=== PATIENT | female | born 1980 ===

== ENCOUNTER → 2018-04-24 11:48 | Outpatient (REF) | payer BC, SELFPAY ==
--- NOTE | 2018-04-24 11:00 | PAPFT_PTH ---
PATIENT: Jessica Payne LOC: [facility] U#:[id number] AGE/SX: 45/F ROOM: RE04/24/[address]: Sterling Don RN : 1980 BED: DIS: SPEC #: [id number] RECD: 04/24/18 12:54 STATUS: STEPHAN LAL #: [id number] JUNG: 04/24/18 11:[address]: Sterling Don DEPT: [facility] Cytology RECD BY: Zuleyka Meyer ENTERED: 04/24/18 12:54 SP TYPE: PAPFT OTHR DR: Jesse Lamb Tissues: 1 - CX/ENDOCX FOR PAP SMEARS Procedures: PAP THIN PREP/UVM Screening HPV DNA PROBE Comments: [id number]
== END ==
LOC: LBN 11:48
PROVIDERS: PCP Family Medicine; Visit Provider Advanced Practice Midwife
DX: Z12.4 Encounter for screening for malignant neoplasm of cervix (principal); Z11.51 Encounter for screening for human papillomavirus (HPV)
CPT/HCPCS: 88142; 87624

== ENCOUNTER 2019-10-16 01:26 | Outpatient (CLI) | payer BC, SELFPAY ==
--- NOTE | 2019-10-16 15:37 | DI.MAMMO_ITS ---
EXAM: MAMMO SCREENING CLINICAL HISTORY: SCREENING Z12.31, BASELINE TECHNIQUE: Mammograms were interpreted according to the usual protocol including computer analysis w Ullink CAD system, tomosynthesis and C-view imaging. COMPARISON: Today's examination is a baseline examination. FINDINGS: The breasts are heterogeneously dense. No dominant mass or clumped microcalcification is identified in either breast. Today's examination is a baseline examination. IMPRESSION: No specific evidence of malignancy at this time. Routine screening examinations are suggested at year ly intervals due to the family history of breast carcinoma. Category 1, breast density category C. BI-RADS Cat 1 - Negative Breast Density - Category C - Heterogeneously dense
== END 2019-10-16 01:46 ==
PROVIDERS: PCP Family Medicine; Visit Provider Registered Nurse
DX: Z12.31 Encounter for screening mammogram for malignant neoplasm of breast (principal); Z80.3 Family history of malignant neoplasm of breast
CPT/HCPCS: 77063; 77067

== ENCOUNTER 2020-07-21 14:47 | Outpatient (CLI) | payer BC, SELFPAY ==
[2020-07-21 15:12] LABS: Kit/Specimen SENT
[2020-07-21 15:31] LABS: Abs Immature Grans 0.06 10^3/uL (0.0-0.06); Absolute Basophil Count 0.01 10^3/uL (0.0-0.2); Absolute Monocyte Count 0.57 10^3/uL (0.1-0.8); Absolute Neutrophil Count 7.88 10^3/uL (1.2-6.7); Basophils % 0.1; Eosinophils % 0.9; HCT 35.2 % (36.0-46.0); Immature Grans % 0.6; Lymphocytes % 20.3; MCH 30.6 pg (27.0-33.0); MCHC 34.1 % (32.0-36.0); MCV 89.8 fL (80-95); MPV 10.5 fL (8.0-11.0); Monocytes % 5.3; Neutrophils % 72.8; Nucleated RBC 0 %; Platelet Count 234 10^3/uL (130-400); RBC 3.92 10^6/uL (3.93-5.22); RDW 12.2 % (11.7-14.6); RDW-SD 39.8 fL; WBC 10.82 10^3/uL (4.4-10.8)
[2020-07-21 16:46] LABS: *AMPHETAMINES SCREEN URINE Negative (Negative); *BARBITURATES SCREEN URINE Negative (Negative); *BENZODIAZEPINES SCREEN URINE Negative (Negative); Cannabinoids THC Negative (Negative); Cocaine Screen,Urine Negative (Negative); METHADONE URINE SCREEN Negative (Negative); OPIATES URINE SCREEN Negative (Negative); Tricyclic Antidepressants Negative (Negative)
[2020-07-21 17:29] LABS: TSH (W/Ref FT4) 0.78 uIU/mL (0.36-3.74)
[2020-07-23 15:43] LABS: Syphilis Total Ab w/Reflex Nonreactive (Nonreactive)
[2020-07-23 17:07] LABS: AFP 24.6 ng/mL; Cigarette smoking status non-Smoker; GA used in risk estimate Scan estimate; IVF Pregnancy No; Initial or repeat testing Initial testing; Insulin dependent diabetes No; Maternal Weight 129 lbs; Number of Fetuses 1; Physician Phone Number 802-748-7300; Prev Pregnancy w/NTD No; RECOMMENDED FOLLOW UP None.; Results Summary Normal risk
[2020-07-26 20:54] LABS: Hepatitis B Surface Ag Negative (Negative); Hepatitis C Ab w Rflx HCV PCR Negative (Negative)
[2020-07-26 22:18] LABS: Specimen WB Whole Blood
[2020-07-27 12:01] LABS: Buprenorphine Negative; Norbuprenorphine Negative
[2020-07-29 18:01] LABS: Specimen WB Whole Blood
[2020-07-30 16:21] LABS: HIV-1/2 Ag & Ab Screen Negative (Negative)
[2020-10-08 15:19] LABS: Varicella IgG Antibody Positive
[2020-10-08 15:20] LABS: Measles IgG Antibody Negative
[2020-10-08 15:22] LABS: Chlamydia Result Negative (Negative); GC Result Negative (Negative)
== END 2020-07-21 15:07 ==
PROVIDERS: PCP Family Medicine; Visit Provider Advanced Practice Midwife
DX: Z34.91 Encounter for supervision of normal pregnancy, unspecified, first trimester (principal); Z11.4 Encounter for screening for human immunodeficiency virus [HIV]; Z11.59 Encounter for screening for other viral diseases; Z36.89 Encounter for other specified antenatal screening
CPT/HCPCS: 36415; 80307; 81329; 86787; 86803; 86850; 86900; 86901; 87340; 87389; 87491; 87591; 81220; 82105; 84443; 85025; 86762; 86765; 86780; 87086; 87480; 87510; 87660

== ENCOUNTER 2020-07-21 16:40 | Outpatient (REF) | payer BC, SELFPAY ==
--- NOTE | 2020-07-21 14:00 | PAPFT_PTH ---
PATIENT: Jessica Payne LOC: [facility] U#:[id number] AGE/SX: 40/F ROOM: RE07/21/[address]: Saira Ann : 1980 BED: DIS: 07/21/2020 SPEC #: [id number] RECD: 07/21/20 17:44 STATUS: STEPHAN REAlayna #: [id number] JUNG: 07/21/20 14:[address]: Saira Ann DEPT: [facility] Cytology RECD BY: Zuleyka Meyer ENTERED: 07/21/20 17:44 SP TYPE: PAPFT OTHR DR: Jesse Lamb Tissues: 1 - CX/ENDOCX FOR PAP SMEARS Procedures: PAP THIN PREP/UVM Screening Comments: [id number] ([id number] [facility])
== END 2020-07-21 17:00 ==
LOC: LBN 16:40
PROVIDERS: PCP Family Medicine; Visit Provider Advanced Practice Midwife
DX: Z12.4 Encounter for screening for malignant neoplasm of cervix (principal); Z87.42 Personal history of other diseases of the female genital tract
CPT/HCPCS: 88142

== ENCOUNTER 2020-10-20 03:51 | Outpatient (CLI) | payer BC, SELFPAY ==
[2020-10-20 15:20] LABS: HCT 31.8 % (36.0-46.0); HGB 10.6 g/dL (11.2-15.7); MCHC 33.3 % (32.0-36.0); MPV 11.2 fL (8.0-11.0); Platelet Count 219 10^3/uL (130-400); RBC 3.42 10^6/uL (3.93-5.22); RDW 12.2 % (11.7-14.6); RDW-SD 41.2 fL
[2020-10-20 15:30] LABS: Glucose,1 Hr (Glucola) 115 mg/dL (80-140)
[2020-10-21 12:09] LABS: Rubella IgG Ab (UVM) Positive (See Note)
== END 2020-10-20 03:52 | disposition home or self-care (01) ==
LOC: LBO 03:51
PROVIDERS: Advanced Practice Midwife; PCP Family Medicine; Visit Provider Advanced Practice Midwife
DX: Z34.93 Encounter for supervision of normal pregnancy, unspecified, third trimester (principal)
CPT/HCPCS: 36415; 82950; 85027; 86762

== ENCOUNTER 2020-12-14 17:24 | Outpatient (REF) | payer BC, SELFPAY | END 2020-12-14 17:25 | disposition home or self-care (01) | LOC: LBN 17:24 | PROVIDERS: PCP Family Medicine; Visit Provider Advanced Practice Midwife | DX: Z34.93 Encounter for supervision of normal pregnancy, unspecified, third trimester (principal); Z3A.36 36 weeks gestation of pregnancy; Z36.85 Encounter for antenatal screening for Streptococcus B | CPT/HCPCS: 87081 ==

== ENCOUNTER 2020-12-20 10:46 | Outpatient (CLI) | payer BC, SELFPAY ==
[2020-12-20 14:10] VITALS: BP 121/83; PULSE 97; TEMP 37.1
[2020-12-20 14:36] VITALS: BP 121/83; PULSE 97
--- NOTE | 2020-12-20 15:56 | W.OBNST ---
Date of service: 12/20/20 Time of Service: 15:56 NST Evaluation Reason for NST Reasons for Nonstress Test: ADVANCED MATERNAL AGE Gestational Age Gestational Age in Weeks and Days: 36 Weeks and 6Days Test and Monitor Explained Test/Monitor Explained: Test Explained, Monitor Explained and Patient Verbalized Understanding Vital Signs Blood Pressure: 121/83 Pulse: 97 Temperature: 98.8 F NST Information Time on Monitor: 14:12 Date off Monitor: 12/20/20 Time off Monitor: 14:45 NST Interventions: PO Hydration NST Evaluation Patient States Movement: Present FHR Baseline: 140 Variability: Moderate 6-25 bpm Accelerations: 15x15 Decelerations: None NST Results: Reactive Note NST Note NST Reviewed and Verified by: Cristal Macario
[2020-12-20 15:58] VITALS: BP 121/83; PULSE 97; TEMP 37.1
== END 2020-12-20 14:45 | disposition home or self-care (01) ==
LOC: BCD 10:47 → OBS 14:08
PROVIDERS: PCP Family Medicine; Visit Provider Advanced Practice Midwife
DX: O09.523 Supervision of elderly multigravida, third trimester (principal); Z3A.36 36 weeks gestation of pregnancy
CPT/HCPCS: 59025

== ENCOUNTER 2020-12-23 12:58 | Outpatient (CLI) | payer BC, SELFPAY ==
[2020-12-23 14:13] VITALS: BP 110/77; PULSE 87; TEMP 36.7
--- NOTE | 2020-12-23 14:46 | W.OBNST ---
Date of service: 12/23/20 Time of Service: 14:47 NST Evaluation Reason for NST Reasons for Nonstress Test: ADVANCED MATERNAL AGE Gestational Age Gestational Age in Weeks and Days: 37 Weeks and 2Days Test and Monitor Explained Test/Monitor Explained: Test Explained, Monitor Explained and Patient Verbalized Understanding Vital Signs Blood Pressure: 110/77 Pulse: 87 Temperature: 98.1 F Urine Results Urine Protein: Positive Urine Ketones: Positive Urine Glucose: Negative Urine Blood: Positive NST Information Date on Monitor: 12/23/20 Time on Monitor: 14:05 Date off Monitor: 12/23/20 Time off Monitor: 14:33 Total Time on Monitor: 28 NST Interventions: PO Hydration NST Evaluation Patient States Movement: Present FHR Baseline: 140 Variability: Moderate 6-25 bpm Accelerations: 15x15 Decelerations: None NST Results: Reactive Note NST Note Note: Jessica Payne presents for scheduled NST due to AMA at 37w2d. No complaints and feels well. Reports active baby. Will return on Mondays and for NST's and weekly office visit. LESLIE NST Reviewed and Verified by: Saira Fabian
[2020-12-23 14:47] VITALS: BP 110/77; PULSE 87; TEMP 36.7
== END 2020-12-23 14:40 | disposition home or self-care (01) ==
LOC: BCD 13:02 → OBS 14:01
PROVIDERS: PCP Family Medicine; Visit Provider Advanced Practice Midwife
DX: O09.523 Supervision of elderly multigravida, third trimester (principal); Z3A.37 37 weeks gestation of pregnancy
CPT/HCPCS: 59025

== ENCOUNTER 2020-12-27 07:06 | Outpatient (CLI) | payer BC, SELFPAY ==
[2020-12-27 14:40] VITALS: BP 127/80; PULSE 90; TEMP 36.4
--- NOTE | 2020-12-27 15:23 | W.OBNST ---
Date of service: 12/27/20 Time of Service: 15:05 NST Evaluation Reason for NST Reasons for Nonstress Test: ADVANCED MATERNAL AGE Gestational Age Gestational Age in Weeks and Days: 37 Weeks and 6Days Test and Monitor Explained Test/Monitor Explained: Test Explained, Monitor Explained and Patient Verbalized Understanding Vital Signs Blood Pressure: 127/80 Pulse: 90 Temperature: 97.5 F Urine Results Urine Protein: Negative Urine Ketones: Negative Urine Glucose: Negative Urine Blood: Negative NST Information NST Interventions: PO Hydration NST Evaluation Patient States Movement: Present Variability: Moderate 6-25 bpm Accelerations: 15x15 Decelerations: None NST Results: Reactive Note NST Note Note: Here for NST, no complaints. Reports active baby, no LOF, vaginal bleeding or contractions. Has disability paper work that I will give to [facility] to process for her. Has NST 2 X weekly and US for SKINNY/growth and presentation next week. NST today is reactive and reassuring. NST Reviewed and Verified by: Saira Fabian
[2020-12-27 15:25] VITALS: BP 127/80; PULSE 90; TEMP 36.4
== END 2020-12-27 15:15 | disposition home or self-care (01) ==
LOC: BCD 07:07 → OBS 14:38
PROVIDERS: PCP Family Medicine; Visit Provider Advanced Practice Midwife
DX: O09.523 Supervision of elderly multigravida, third trimester (principal); Z3A.37 37 weeks gestation of pregnancy
CPT/HCPCS: 59025

== ENCOUNTER 2020-12-30 07:18 | Outpatient (CLI) | payer BC, SELFPAY ==
[2020-12-30 14:09] VITALS: BP 116/80; PULSE 90; TEMP 36.9
[2020-12-30 14:28] VITALS: BP 116/80; PULSE 90
--- NOTE | 2020-12-30 15:04 | W.OBNST ---
Date of service: 12/30/20 Time of Service: 15:04 NST Evaluation Reason for NST Reasons for Nonstress Test: ADVANCED MATERNAL AGE Gestational Age Gestational Age in Weeks and Days: 38 Weeks and 2Days Test and Monitor Explained Test/Monitor Explained: Test Explained, Monitor Explained and Patient Verbalized Understanding Vital Signs Blood Pressure: 116/80 Pulse: 90 Temperature: 98.4 F NST Information Date on Monitor: 12/30/20 Time on Monitor: 14:10 Date off Monitor: 12/30/20 Contraction Frequency: 6-7 NST Evaluation Patient States Movement: Present FHR Baseline: 140 Variability: Moderate 6-25 bpm Accelerations: 15x15 Decelerations: None NST Results: Reactive Note NST Note Note: see visit note. RTO 01/03. Induction planned for 01/09. NST Reviewed and Verified by: Saira Ann
[2020-12-30 15:05] VITALS: BP 116/80; PULSE 90; TEMP 36.9
[2020-12-31 15:19] VITALS: BP 138/93; PULSE 96
== END 2020-12-30 14:34 | disposition home or self-care (01) ==
LOC: BCD 07:19 → OBS 13:54
PROVIDERS: PCP Family Medicine; Visit Provider Advanced Practice Midwife
DX: O09.523 Supervision of elderly multigravida, third trimester (principal); Z3A.38 38 weeks gestation of pregnancy
CPT/HCPCS: 59025

== ENCOUNTER 2020-12-31 03:11 | Outpatient (CLI) | payer BC, SELFPAY ==
--- NOTE | 2020-12-31 07:15 | DI.US_ITS ---
EXAM: US OB SKINNY WEIGHT CLINICAL HISTORY: SKINNY and weight,ADVANCED MATERNAL AGE,. TECHNIQUE: Transabdominal obstetrical ultrasound performed. COMPARISON: No previous for comparison. FINDINGS: Transabdominal obstetrical ultrasound performed. FINDINGS: Number of fetuses: One. position: Cephalic. Placental location: Fundal and to the right. Grade 2-3. no evidence of previa. BIOMETRIC DATA: BPD: 91 mm = 37 weeks HC: 334 mm = 38 weeks 1 day AC: 349 mm = 38 weeks 5 days FL: 70 mm = 35 weeks 6 days EFW: 3315 grms 49% Composite Age: 37 weeks 3 days EDC: 01/18/2021 Heart Rate: 147BPM Amniotic fluid index: 27.5 cm. Findings suggesting polyhydramnios. IMPRESSION: 1. Single live intrauterine gestation as above. 2. Estimated weight is 3315gms. 3. Amniotic fluid index is 27.5 cm. Findings of polyhydramnios. DATA REPOSITORY:
== END 2020-12-31 03:31 ==
PROVIDERS: PCP Family Medicine; Visit Provider Advanced Practice Midwife
DX: O09.523 Supervision of elderly multigravida, third trimester (principal); O40.3XX0 Polyhydramnios, third trimester, not applicable or unspecified; Z3A.38 38 weeks gestation of pregnancy
CPT/HCPCS: 76816

== ENCOUNTER 2021-01-01 15:38 | Inpatient (IN) | payer BC, SELFPAY ==
[2021-01-01] VITALS (16 sets, daily range): BP systolic 105–125; BP diastolic 66–82; PULSE 60–196; RESP 14–20; TEMP 36.9; O2SAT 85–98
[2021-01-01 16:45] LABS: ROM Plus Positive
[2021-01-01 17:27] LABS: Source Nasal/Nares
[2021-01-01 17:31] LABS: HCT 35.5 % (36.0-46.0); MCH 31.5 pg (27.0-33.0); MCHC 33.8 % (32.0-36.0); MCV 93.2 fL (80-95); MPV 12.7 fL (8.0-11.0); Platelet Count 148 10^3/uL (130-400); RBC 3.81 10^6/uL (3.93-5.22); RDW-SD 47.8 fL; WBC 10.17 10^3/uL (4.4-10.8)
--- NOTE | 2021-01-01 18:00 | W.PM.OBHPL1 ---
Date of service: 01/01/21 Time of Service: 18:00 Assessment and Plan Assessment and plan (1) Spontaneous onset of labor: Status: Acute Assessment and plan: Admit to Center. Comfort measures. Covid- 19 test. Anticipate . artificial rupture of forebag if patient desires. (2) Polyhydramnios: Status: Acute (3) Advanced maternal age (AMA) in : Status: Acute OB-HPI Labor/Delivery History of Present Illness Reason for Visit: RULE OUT LABOR, SROM? Chief Complaint: Suspected Rupture of Membranes (leaking clear fluid) , Associated Signs and Symptoms of Suspected ROM: mild contractions ; Suspected Labor. JONATHAN Calculator Estimated Delivery Date Method Current WG Current Estimate 01/11/21 Ultrasound #2 38w 4d Other Estimates 01/31/21 LMP (Uncertain) 35w 5d 12/25/20 Ultrasound #1 41w 0d Comments: Jessica is experiencing mild contractions. and leaking a small amount of fluid. History of Present Expected Delivery Route/Plan - CNM FOB/ - Cooper (second child together) BG GBS Negative @ 36 wks Desires epidural for labor Plan for MMR vaccine (Rubeola neg) (rubella positive in Nov 07) Maternal age >40: plan NST x2/wk at 37 wks, SKINNY @ 38 wks, IOL before 40 wks IOL 01/09 Specific Issues/Plan 1. PA approved for [place] screening, not required for CF & SMA screening 1a. [place], CF, SMA, and AFP drawn 1b. SMA carrier screen negative, [place] low prob x3, female 1c. [place] [facility] [place] lying placenta, repeat US in 4 weeks due to dating not consistent with first trimester US. 2. Depression - taking sertraline 75 mg - would like to wean off. 2a. At 24 wks, happy taking 50 mg sertraline, no longer desires to wean. 3. Advanced Maternal Age - referred to [facility] for Level 2 US 4. Tandem Nursing. Stopped nursing toddler in July 2020 5. Bacterial Vaginosis - metronidazole 500 mg PO BID e-scribed. 6. 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 Low lying placenta, repeat US at 28 weeks for placental position 7a. US at [facility] [place]/08/20 showed posterior placenta 8. HPV not performed on pap - discuss with patient. Repeat pap 9. Needs rubella titer drawn (Rubeola was drawn which is neg,)- draw with 28 week labwork, discuss neg rubeola titre with Jessica 9a. Disc'ed Rubella test & Rubeola results w/pt, will waive Rubella test, plan for MMR vaccine 9b. Rubella titre was ordered and was neg. 10. Hgb at 28 wks 10.6, advised in iron rich foods & Blood Builder 1 tab BID, routine recheck @ 36 wks 11. Received Tawanda and Tawanda covid vaccine 11/28, TDAP 2 weeks after 12. US 12/31 indicates polyhydrannios with SKINNY 27.5, precautions reviewed with Jessica. repeat US in 1 week. IOL pending US results. Informed Consent Informed Consent: Risk,Benefits,Alternatives Discussed (expectant management or rupture of forebag of membranes) PFSH Medical History Depression screen neg Depression, major, in remission Former tobacco use Family History (Updated 07/21/20 @ 13:48 by Saira Ann CNM) Mother Mental disorder anxiety Father Mental disorder anxiety Neoplasm Paternal Grandfather Heart disease Maternal Grandfather Mental disorder bipolar disorder Social History (Updated 07/21/20 @ 13:49 by Saira Ann CNM) Smoking/Tobacco Use Status: Former Tobacco Use Quit Date: 07/31/17 Smoking risk assessment performed?: Yes History History 3 Para 1 Hx # Term Pregnancies 1 Multiple births 0 Hx # Pregnancies 0 Ectopic pregnancies 0 AB induced 0 Hx Number of Living Children 1 AB spontaneous 1 Past Pregnancies Del. Date GA/Weeks # Outcome Route Wgt Sex Labor Lgth Anesthesia Location Prov Complic 03/12/18 39 No Successful vaginal Male 15 regional Anea Delivery Date: 03/12/18 Saira Mcnulty [place] Allergies and Home Medications Allergies Allergy/AdvReac Type Severity Reaction Status Date / Time No Known Allergies Allergy Unverified 12/27/20 15:29 Home Medications Medication Instructions Recorded Confirmed Type PNV cmb#95-ferrous fumarate-FA 1 ea PO DAILY 06/29/17 12/27/20 History [] sertraline 25 mg tablet 50 mg PO DAILY tab 07/21/20 12/27/20 History ferrous sulfate 325 mg (65 mg 650 mg PO DAILY tab 12/20/20 12/27/20 History iron) tablet Exam Physical Exam Vital signs: Temp Pulse Resp BP Pulse Ox 98.5 F 89 14 125/72 98 01/01/21 17:24 01/01/21 17:24 01/01/21 17:24 01/01/21 17:24 01/01/21 17:24 Vital Signs Reviewed: Yes Constitutional Constitutional: no acute distress Detailed Labor and Delivery Exam Dilation: 2 Effacement (%): 80 station: -1 Cervix position: posterior Consistency: soft Bolanos Score: Cervical Points Exam 0 1 2 3 Dilation Closed 1-2cm 3-4 cm 5-6cm Effacement 0-30% 40-50% 60-70% 80% Consistency Firm Medium Soft Station -3 -2 -1,0 +1,+2 Position Posterior Mid Anterior Amniotic Membrane Status: Ruptured Rupture Method: Spontaneous Amniotic Fluid: Clear ROM Plus: Positive Fetus A Heart Rate Baseline: 140 Monitor Accelerations: 15 X 15 Monitor Decelerations: None Variability: Moderate (6-25 BPM) Presentation: Vertex Categories: Category I Respiratory Exam Respiratory Exam: Normal Cardiovascular Exam Cardiovascular Exam: Normal Abdominal Exam Abdominal Exam: Normal Rectal Exam Rectal Exam: Normal Exam Exam: Normal Extremities Exam Extremities Exam: Normal Psychiatric Exam Psychiatric Exam: Normal Results Abnormal Lab Findings: Abnormal Labs 01/01/21 17:20 RBC 3.81 L Hct 35.5 L MPV 12.7 H Risk Assessment Risk for Shoulder Dystocia Historical/Initial OB: NEGATIVE FOR: Pelvic Abnormality, Pre- BMI>30, Previous Shoulder Dystocia or Previous Macrosomia 40 Weeks: NEGATIVE FOR: EFW> 4500 gms, Maternal Weight Gain >40lb or Post Dates Increased Risk?: No Risk for Pre-Eclampsia Daily Dose ASA Indicated: No Yes, if one or more: NEGATIVE FOR: Hx Pre-E/Gest HTN, Chronic HTN, Multiple Gestation, Pre-gestational DM, Renal Disease, Systemic Lupus or APA Syndrome Yes, if 2 or more: POSITIVE FOR: Age>= 35 yrs; NEGATIVE FOR: Nulliparity, >10yr btwn pregnancies, BMI>30, ethinicty, Mother/Sister w/ Pre-E or Previous IUGR Risk for Post- Hemorrhage Initial: NEGATIVE FOR: Multiple Gestation, Previous PPH, Known Clotting Deficiency, Grand Multiparity or Anticoagulation At Risk?: No Risks Reviewed Risks Reviewed Upon Admission: Yes
[2021-01-01 18:35] LABS: COVID-19 PCR Negative (Negative)
[2021-01-01] MEDS: Normal Saline Flush 10 ML SYR IVP (18:38)
[2021-01-01] MEDS: Lactated Ringers 500 ML IV (18:39)
[2021-01-01] MEDS: FentaNYL/ROPIvacaine 2 mcg/ml and 0.1% 200 ML CADD Cassette EP (19:00)
--- NOTE | 2021-01-01 21:23 | W.OBDELIVERY ---
Date of service: 01/01/21 Time of Service: 21:23 OB Labor/ Delivery Information Baby A Delivery Delivery Method: Spontaneaous Presentation: Vertex Vertex Position: Left Occipital Anterior Cord Description-Baby A: 3 Vessels Amniotic Fluid: Clear Delivery Outcome: Liveborn Transferred: Remains with Mother Providers Nurse Product Development Consultant: Saira Ann Intake Specialist: Royer Cadet Nurse: Regina Henry Labor/Delivery Information Number of Babies in Womb: 1 Steroids Given: None Group Beta Strep: Negative Antibiotics Administered: No Rubella Status: Immune Blood Type: A+ Varicella Immunity: Immune Maternal Complications: None Shoulder Dystocia: No Note: [id number] during first stage of labor. FHTs 130s in second stage. Progressed to full dilation and began pushing. Second stage huddle was done. Spontaneous delivery of female infant delivered in SORAYA position. Baby was placed on mother's abdomen and dried and stimulated. Spontaneous cry. Cord was clamped and cut by the baby's father. The placenta delivered spontaneously and appears to by intact with a three vessel cord. The perineum was inspected and there was a small hymenal abrasion which was re-approximated with one 4-0 vicryl suture. The baby did breastfeed. After delivery, Mother and baby and father of the baby were stable and bonding well in the delivery room and there were no complications. Stages of Labor Onset of Labor Date: 01/01/21 Onset of Labor Time: 15:00 Complete Dilatation Date: 01/01/21 Complete Dilatation Time: 20:44 Labor - Stage 1 Duration: 0 minutes ROM Baby A: 01/01/21 ROM Baby A: 15:30 Infant Delivery Date-Baby A: 01/01/21 Infant Delivery Time-Baby A: 20:54 Labor Stage 2 Duration: 10 minutes Placenta Delivery Date-Baby A: 01/01/21 Placenta Delivery Time-Baby A: 21:00 Labor-Stage 3 Duration: 6 minutes Total Length of Labor-Baby A: 5 hours and 54 minutes Placenta Cultured: No Placenta Status: Delivered Baby A Gender: Female Gestational Age in Weeks/Days: 38 Weeks and 4 Days Score-1 Minute Interval(Baby A) Heart Rate-1 minute: 100 BPM or Greater Respiratory Effort- 1 minute: Spontaneous/Strong Cry Muscle Tone-1 minute: Active Movement Reflex Response-1 minute: Prompt Response Color-1 minute: Pallor or Cyanosis Total Score-1 minute: 8 Score-5 Minute Interval(Baby A) Heart Rate- 5 minute: 100 BPM or Greater Respiratory Effort-5 minute: Spontaneous/Strong Cry Muscle Tone-5 minute: Active Movement Reflex Response-5 minute: Prompt Response Color-5 minute: Bluish Hands or Feet Total Score- 5 minute: 9 Interventions Repair of Laceration Type: Other (hymenal, left labial) , Laceration Repair Note: hymenal abrasion re- approximated with one interrupted suture, left labial abrasion not repaired
[2021-01-01] MEDS: Lactated Ringers 1,000 ML 125 ML IV (22:38)
[2021-01-02 02:30] VITALS: BP 121/73; PULSE 67; RESP 18; TEMP 36.8
[2021-01-02] MEDS: Acetaminophen 325 MG TAB 650 MG PO ×3 (07:41→20:06)
[2021-01-02] MEDS: Ibuprofen 600 MG TAB PO ×3 (07:41→20:06)
[2021-01-02] MEDS: Sertraline 50 MG TAB PO (07:42)
[2021-01-02 07:43] LABS: HCT 35.5 % (36.0-46.0); HGB 12.2 g/dL (11.2-15.7); MCH 31.5 pg (27.0-33.0); MCHC 34.4 % (32.0-36.0); MCV 91.7 fL (80-95); MPV 12.4 fL (8.0-11.0); Platelet Count 137 10^3/uL (130-400); RBC 3.87 10^6/uL (3.93-5.22); RDW-SD 47.1 fL; WBC 11.51 10^3/uL (4.4-10.8)
[2021-01-02 08:00] VITALS: BP 122/73; PULSE 68; RESP 12; TEMP 36.6; O2SAT 98
[2021-01-02] MEDS: Measles, Mumps, & Rubella Vaccine 0.5 ML VIAL (12:56)
[2021-01-02 16:15] VITALS: BP 107/65; PULSE 66; RESP 14; TEMP 36.7; O2SAT 99
--- NOTE | 2021-01-02 19:55 | OBPPV_ITS ---
Date of service: 01/02/21 Time of Service: 16:00 Assessment and Plan Assessment and plan (1) Normal vaginal delivery: Status: Acute Assessment and plan: Caring for baby independently. Pain is managed well with oral analgesics. Voiding without difficulty. well. A - stable mother and baby , Post day 1 P - Discharge to home . Routine post instructions. [facility] Subjective Subjective Patient comments: No complaints baby status: Doing well [place] feeding status: Exclusively breast feeding Exam Physical Exam Vital signs: Temp Pulse Resp BP Pulse Ox 98.1 F 66 14 107/65 99 01/02/21 16:15 01/02/21 16:15 01/02/21 16:15 01/02/21 16:15 01/02/21 16:15 Constitutional Constitutional: no acute distress Respiratory Exam Respiratory Exam: Normal Cardiovascular Exam Cardiovascular Exam: Normal Abdominal Exam Abdomen: Tender Fundal Exam Fundus: Below Umbilicus Extremities Exam Extremity Exam: Normal Psychiatric Exam Psychiatric Exam: Normal Results Hemoglobin/Hematocrit: Hgb 12.2 g/dL (11.2-15.7) 01/02/21 07:20 Hct 35.5 % (36.0-46.0) L 01/02/21 07:20 Abnormal Lab Findings: Abnormal Labs 01/01/21 01/02/21 17:20 07:20 WBC 11.51 H RBC 3.81 L 3.87 L Hct 35.5 L 35.5 L MPV 12.7 H 12.4 H
[2021-01-02 20:00] VITALS: BP 126/64; PULSE 66; RESP 16; TEMP 37.4; O2SAT 99
[2021-01-02] MEDS: Docusate Sodium 100 MG CAP PO (20:06)
[2021-01-03] VITALS: TEMP 37.1
[2021-01-03 04:00] VITALS: TEMP 36.5
[2021-01-03] MEDS: Ibuprofen 600 MG TAB PO (04:01)
[2021-01-03] MEDS: Acetaminophen 325 MG TAB 650 MG PO ×2 (04:01→08:21)
[2021-01-03] MEDS: Sertraline 50 MG TAB PO (08:17)
[2021-01-03 08:30] VITALS: BP 108/73; PULSE 66; RESP 14; TEMP 37
--- NOTE | 2021-01-03 09:26 | W.PM.OBDISCH ---
Date of service: 01/03/21 Time of Service: 09:26 DS: Diagnosis Discharge Diagnosis (1) Normal vaginal delivery: Status: Acute Asessment and Plan: Caring for baby independently. Pain is managed well with oral analgesics. Voiding without difficulty. well. A - stable mother and baby , Post day 2 P - Discharge to home. Routine post instructions. [facility] Discharge Plan Discharge Details Reason For Visit: RULE OUT LABOR, SROM? Admit Date/Time: 01/01/21 15:38 Admit Provider: Saira Ann Attending Provider: Saira Ann Primary Care Provider: Jesse Lamb Home Meds and New Rx's Prescriptions: Continued PNV cmb#95-ferrous fumarate-FA [] 1 EACH tablet 1 ea PO DAILY RF: 0 Discontinued ferrous sulfate 325 mg (65 mg iron) tablet 650 mg PO DAILY RF: 0 No Action sertraline 25 mg tablet 50 mg PO DAILY RF: 0 Discharge Instructions Activity:: Activity as Tolerated Activity:: Activity as Tolerated Equipment/Supplies:: No Equipment Needed Diet:: As Tolerated OB:DS Summary Summary Vaginal Delivery Method: Spontaneaous Episiotomy Description: None Laceration Description: Other (hymenal, left labial) Laceration Extension: N/A Contraception Discussed Contraception Discussed: Yes (paragard) Contraceptive Plan: IUD, [place] Gender-Baby A: Female weight: 7 lb 2.288 oz Status at Discharge Functional status at discharge: independent ambulation Overall status at discharge: patient is back to baseline Mental Status: mental status grossly normal Speech and Movement: speech and movement normal Mood: congruent mood Affect: normal affect Exam Physical Exam Vital signs: Temp Pulse Resp BP Pulse Ox 97.7 F 66 16 126/64 99 01/03/21 04:00 01/02/21 20:00 01/02/21 20:00 01/02/21 20:00 01/02/21 20:00 Constitutional Constitutional: no acute distress Respiratory Exam Respiratory Exam: Normal Cardiovascular Exam Cardiovascular Exam: Normal Abdominal Exam Abdomen: Tender Fundal Exam Fundus: Below Umbilicus Extremities Exam Extremity Exam: Normal Psychiatric Exam Psychiatric Exam: Normal [facility] Medical History Depression screen neg Depression, major, in remission Former tobacco use Family History (Updated 07/21/20 @ 13:48 by Saira Ann CNM) Mother Mental disorder anxiety Father Mental disorder anxiety Neoplasm Paternal Grandfather Heart disease Maternal Grandfather Mental disorder bipolar disorder Social History (Updated 07/21/20 @ 13:49 by Saira Ann CNM) Smoking/Tobacco Use Status: Former Tobacco Use Quit Date: 07/31/17 Smoking risk assessment performed?: Yes History History 3 Para 1 Hx # Term Pregnancies 1 Multiple births 0 Hx # Pregnancies 0 Ectopic pregnancies 0 AB induced 0 Hx Number of Living Children 1 AB spontaneous 1 Past Pregnancies Del. Date GA/Weeks # Outcome Route Wgt Sex Labor Lgth Anesthesia Location Prov Complic 03/12/18 39 No Successful vaginal Male 15 regional Anea Delivery Date: 03/12/18 Saira Mcnulty DS: Data Vitals/I&O Vitals and I&O: Vital Signs Temperature 97.7 F 01/03/21 04:00 Pulse 66 01/02/21 20:00 Pulse Rhythm Regular 01/02/21 20:00 Respiratory Rate 16 01/02/21 20:00 Respiratory Depth Normal 01/01/21 17:24 Blood Pressure 126/64 01/02/21 20:00 Blood Pressure Mean 84 01/02/21 20:00 Pulse Oximetry 99 01/02/21 20:00 Oxygen Delivery Method Room Air 01/01/21 17:24 Oxygen Flow Rate 0 01/01/21 17:24 Pain Level 1 01/03/21 08:21 Comment 01/02/21 20:00 Intake & Output 01/02/21 01/02/21 01/03/21 11:59 23:59 11:59 Intake Total 1000 / 1000 Output Total 1100 / 1100 Balance -100 / -100 Intake: IV 1000 / 1000 Output: Urine 1100 / 1100
== END 2021-01-03 10:25 | disposition home or self-care (01) | DRG 807 ==
PROVIDERS: Admitting Provider Advanced Practice Midwife; PCP Family Medicine; Visit Provider Advanced Practice Midwife
DX: O40.3XX0 Polyhydramnios, third trimester, not applicable or unspecified (principal); Z37.0 Single live birth; O70.0 First degree perineal laceration during delivery; O99.344 Other mental disorders complicating childbirth; F32.9 Major depressive disorder, single episode, unspecified; Z3A.38 38 weeks gestation of pregnancy; Z20.822 Contact with and (suspected) exposure to COVID-19
CPT/HCPCS: 36415; 84112; 85027; 86850; 86900; 86901; 87635

== ENCOUNTER 2022-07-22 13:12 | Outpatient (REF) | payer BC, SELFPAY ==
[2022-07-22 14:54] LABS: COVID-19 PCR Negative (Negative); Influenza A PCR Negative (Negative); Influenza B PCR Negative (Negative); RSV PCR Negative (Negative)
[2022-07-22 15:18] LABS: Source Nasopharynx
== END 2022-07-22 13:13 | disposition home or self-care (01) ==
LOC: LBN 13:12
PROVIDERS: PCP Registered Nurse; Visit Provider Pediatrics
DX: J06.9 Acute upper respiratory infection, unspecified (principal)
CPT/HCPCS: 87637

== ENCOUNTER 2023-03-07 09:58 | Outpatient (CLI) | payer BC, SELFPAY ==
[2023-03-07 10:47] LABS: ALT 17 U/L (14-59); AST 11 U/L (15-37); Albumin 3.9 g/dL (3.4-5.0); Alkaline Phosphatase 57 U/L (46-116); Anion Gap 6.7 mmol/L (3-11); BUN 14 mg/dL (7-18); Bilirubin, Total 1.1 mg/dL (0.2-1.0); CO2 28.3 mmol/L (21.0-32.0); Calcium 9.1 mg/dL (8.5-10.1); Calculated LDL 114 mg/dL (<100); Chloride 105 mmol/L (98-107); Cholesterol 201 mg/dL (<200); Glucose 115 mg/dL (74-106); HDL Cholesterol 78 mg/dL (40-60); Potassium 4.1 mmol/L (3.5-5.1); Sodium 140 mmol/L (136-145); Total Protein 7.8 g/dL (6.4-8.2); Triglyceride 45 mg/dL (<150)
[2023-03-07 10:51] LABS: CREATININE 0.7 mg/dL (0.55-1.02)
== END 2023-03-07 09:59 | disposition home or self-care (01) ==
LOC: LBO 09:59
PROVIDERS: PCP Registered Nurse; Visit Provider Nurse Practitioner
DX: Z13.1 Encounter for screening for diabetes mellitus (principal); Z13.228 Encounter for screening for other metabolic disorders; Z13.220 Encounter for screening for lipoid disorders
CPT/HCPCS: 36415; 80053; 80061

== ENCOUNTER 2024-06-03 18:18 | Outpatient (CLI) | payer BC, SELFPAY ==
--- NOTE | 2024-06-03 | DI.RAD_ITS ---
Exam(s) XR CHEST 2V PA LATERAL EXAM: XR CHEST 2V PA LATERAL CLINICAL HISTORY: ICD 10 R05.9 COUGH, UNSPECIFIED TECHNIQUE: 2D digital imaging was performed. Two views. COMPARISON: No exams were available for comparison FINDINGS: HEART: Normal size. Aorta: Not dilated. PULMONARY VASCULATURE: Normal. MEDIASTINUM: Unremarkable. LUNGS: Clear. PLEURAL SPACE: No pleural effusion or pneumothorax. BONE:Unremarkable for age. SOFT TISSUES: Unremarkable. IMPRESSION: No acute abnormality. DATA REPOSITORY: RADIATION DOSE DELIVERED:
--- NOTE | 2024-06-03 19:00 | DI.VRAD_ITS ---
PROCEDURE INFORMATION: Exam: XR Chest Exam date and time: 06/03/2024 6:27 PM Age: 44 years old Clinical indication: Cough TECHNIQUE: Imaging protocol: Radiologic exam of the chest. Views: 2 views. COMPARISON: No relevant prior studies available. FINDINGS: Lungs: No alveolar infiltrate. Pleural spaces: No pleural fluid collection. No pneumothorax. Heart/Mediastinum: Normal heart size. Bones/joints: Unremarkable for patient age. IMPRESSION: No active pulmonary disease. Dictated and Authenticated by: Tyshawn Carrera MD. Ordering:BRITT MONTEZ MD
== END 2024-06-03 18:38 ==
PROVIDERS: PCP Registered Nurse; Visit Provider Nurse Practitioner Family
DX: R05.9 Cough, unspecified (principal)
CPT/HCPCS: 71046

== ENCOUNTER 2024-09-23 08:22 | Day surgery (SDC) | payer OTHER, SELFPAY ==
--- NOTE | 2024-09-22 12:54 | W.COLOREPORT ---
Date of service: 09/23/24 Time of Service: 09:55 Colonoscopy Report Date of procedure: 09/23/24 Pre-op diagnosis general: crc screen/family history of colorectal cancer in first-degree relative les Post-op diagnosis procedure note: other (Adenomatous polyps) Surgeon: Leticia De Leon Anesthesia Type: General LMA/ETT Estimated blood loss (mL): 1 Pathology: other Complications: None Disposition: same day Prep: Miralax/Dulcolax Procedure Description: After informed consent was obtained, explaining risks of the procedure, including but not limits to: bleeding, infections, complications of anesthesia, perforations (which may require antibiotics and /or surgery and stay in the hospital), and abdominal pain/cramping. The patient was taken to the procedure room and placed in a left decubitous position. Monitors were applied and a time out was done. The patients name, date of , procedure, allergies to medications and metal in their body was reviewed. The patient was then sedated. Once sedated and comfortable a rectal exam was done. External exam was normal. Internal exam revealed a normal sphincter tone and no palpable masses. The previously lubricated Olympus scope was then introduced (see RN notes for scope number) and retrofelexed. No internal hemorrhoids were identified. The scope was then advanced to the cecum without difficulty. The TI and appendiceal orifice were identified. The scope was then slowly retracted over 10 minutes back into the rectum. Polyps: A pedunculated 2 cm polyp was found at 70 cm. This was removed with a cold snare. All of the specimen was retrieved. This will be sent to pathology. Clip is placed over the defect. There is no bleeding noted from the polypectomy site. Diverticula: None the mucosa is pink and healthy w/ a normal vascular pattern. The scope was removed, and the patient was woken up and taken back to Same day surgery in stable condition. The patient tolerated the procedure well and there were no immediate complications. Follow up: The patient should follow up in 3 years, unless they develop changes in bowel habits or other new gastrointestinal complaints. [place] Bowel Prep [place] Bowel Prep Right Colon: 3 Left Colon: 3 Transverse Colon: 3 Total Score: 9
--- NOTE | 2024-09-22 19:25 | PDOC.DSDIS_ITS ---
Date of service: 09/23/24 Discharge Plan Disposition Patient Disposition: Home Condition: Good Discharge Details Reason For Visit: colon cancer screening Attending Provider: Leticia De Leon Primary Care Provider: Alexsandra De La Cruz Home Meds and New Rx's Prescriptions: Continued sertraline 25 mg tablet 75 mg PO DAILY Mirena 20 mcg/24 hours (6 yrs) 52 mg intrauterine device 1 device intrauterine ONCE Rx Instructions: as a single dose atorvastatin 10 mg tablet 10 mg PO DAILY polyethylene glycol 3350 17 gram/dose powder 17 g PO ONCE Qty: 238 0RF Rx Instructions: Take per colonoscopy instructions provided by ordering providers office loratadine [Allerclear] 10 mg tablet 10 mg PO DAILY PRN Discontinued bisacodyl [Dulcolax (bisacodyl)] 5 mg tablet,delayed release (DR/EC) 5 mg PO ONCE Qty: 4 0RF Rx Instructions: Take per colonoscopy instructions provided by ordering providers office Discharge Instructions Additional Instructions: DSU Colonoscopy Post- Op Instructions Instructions for Everyone who is given Anesthesia: For your safety, please do the following for the next twenty-four (24) hours: *Do Not operate a motor vehicle (car, truck, motorcycle, etc.) *Do Not drink alcoholic beverages or use any recreational drugs for the first 24 hours or while taking pain medications. The medications in your body may have a reaction that can be dangerous. *Do Not make any important decisions or sign any important papers. Findings: Adenomatous polyps (large pre-cancerous polyp) Follow up: Repeat Colonoscopy in 3 yrs time 1. No lifting over 20 pounds or strenuous activity for the first 24 hours after your procedure. After 24 hours there are no restrictions on your activity but you may feel fatigued for a few days. 2. After you arrive home you may have a light meal and return to your normal diet as you can tolerate it without feeling sick to your stomach. 3. You may have a bloated, gaseous feeling in your belly (abdomen) after a colonoscopy. Passing gas and belching will help. Walking or lying down on your left side with your knees flexed may relieve the discomfort. Call the office at [phone] (Office) or [phone] (Hospital) right away if you notice any of the following: a.Vomiting of blood or ?coffee ground stools?. b.Rectal bleeding 1Tbsp, blood clots or continuous bleeding. c.Severe belly (abdominal) pain. d.A hard distended belly (abdomen) and an inability to pass gas. 4. Please don?t expect to have a normal BM (bowel movement) for 2-3 days after your procedure. 5. If there are questions regarding the findings of your procedure, please contact your doctor 6. If you are unable to contact your doctor with a problem, contact the hospital at [phone]. 7. Continue all your regular medications unless directed otherwise. I understand the above instructions and have no questions. Signature of Patient or Adult Escort Name of Responsible Adult Escort Signature of Nurse Date/Time Activity:: see above Diet:: see above Discharge Orders Discharge Orders: Discharge Order (Routine); Ordered 09/23/24 Ordered By: Leticia De Leon DS: Diagnosis Discharge Diagnosis (1) Alcohol use disorder: Status: Acute (2) Screening for malignant neoplasm of colon: Status: Acute Asessment and Plan: The patient is seen and examined after their colonoscopy.? The patient has been able to pass gas.? They are not having abdominal pain.? They have been able to tolerate liquids and a snack.? They do not have any nausea or vomiting.? They are not having any chest pain or shortness of breath.??? They are not having any rectal bleeding. Their vital signs have been stable-see nursing notes. We discussed findings during their colonoscopy, and any biopsies that were done/polyps that were removed. The patient will be sent a letter with any biopsy results, and when to repeat the colonoscopy.-see discharge instructions. Patient was given explicit instructions to follow-up regarding colonoscopy-refer to discharge instructions.? We reviewed resumption of medications. Patient verbalized understanding and discharged in stable and satisfactory condition- See nursing notes. (3) Adenomatous polyps: Status: Acute
[2024-09-23 08:41] VITALS: BP 108/81; PULSE 98; RESP 20; TEMP 36.4; O2SAT 99
[2024-09-23] MEDS: Lactated Ringers 1,000 ML 80 ML IV (08:52)
--- NOTE | 2024-09-23 08:55 | ANES.PREOP_ITS ---
General Info Date of Service Date Performed: 09/23/24 Height: 5 ft 2 in Weight: 60.3 kg Body Mass Index (BMI): 24.3 Surgical Procedure: Operation Date: 09/23/24 08:35 Proposed Procedure Side Surgeon mingo De Leon, Pre-Op Diagnosis Post-Op Diagnosis colon cancer screening Meds Allergies and Home Medications Allergies Allergy/AdvReac Type Severity Reaction Status Date / Time No Known Allergies Allergy Verified 09/23/24 08:36 Home Medication ?Medication ?Instructions ?Recorded levonorgestrel 21 mcg/24 hr (up to 1 device intrauterine ONCE 02/24/21 8 years) 52 mg intrauterine device (Mirena) atorvastatin 10 mg tablet 10 mg PO DAILY 09/04/24 polyethylene glycol 3350 17 17 g PO ONCE #238 grams 09/04/24 gram/dose oral powder sertraline 25 mg tablet 75 mg PO DAILY 09/04/24 loratadine 10 mg tablet 10 mg PO DAILY PRN 09/19/24 (Allerclear) Current Visit Medications: Current Medications Generic Name Dose Route Start Last Admin Trade Name Freq PRN Reason Stop Dose Admin Hyoscyamine Sulfate 0.125 mg 09/23/24 00:53 Hyoscyamine 0.125 Mg Sl/Oral/Chew SL 10/23/24 00:52 DIRECTED PRN Ringer's Solution 1,000 mls @ 80 mls/hr 09/23/24 08:30 09/23/24 08:52 IV 10/23/24 08:29 80 mls/hr INFUSION VANADNA Administration IV Miscellaneous Supplies 1 each 09/23/24 06:00 Iv Access IV 09/23/24 23:59 DIRECTED VANDANA Ondansetron HCl 4 mg 09/23/24 00:53 Ondansetron 4 Mg/2 Ml Vial IVP 10/23/24 00:52 Q4H PRN PRN Nausea / Vomiting Sodium Chloride 0 ml 09/23/24 06:00 Normal Saline Flush 10 Ml Syr IV 09/23/24 23:59 PRN PRN Sodium Chloride 0 ml 09/23/24 06:00 Normal Saline 10 Ml Vial IJ 09/23/24 23:59 DIRECTED PRN Sterile Water 0 ml 09/23/24 06:00 Water,Injection,Sterile 10 Ml Vial IJ 09/23/24 23:59 DIRECTED PRN PFSH Active Problems Active Problems: Problem Status Onset Code Alcohol use disorder Acute F10.90 Screening for malignant neoplasm of colon Acute Z12.11 Presence of IUD Acute Z97.5 Encounter for intrauterine device placement Acute Z30.430 6 weeks follow-up Acute Z39.2 2 weeks follow-up Acute Z39.2 Normal vaginal delivery Acute O80 Measles screening Acute Z11.59 Spontaneous onset of labor Acute Polyhydramnios Acute O40.9XX0 Low lying placenta nos or without hemorrhage, second trimester Resolved O44.42 Cystic fibrosis carrier Acute Z14.1 Former tobacco use Acute Z87.891 Advanced maternal age (AMA) in Acute Acute Z34.90 Positive test Acute Z32.01 Medical History Medical History High cholesterol Depression screen neg Tobacco Smoking/Tobacco Use Status: Former Tobacco Use Alcohol Alcohol Intake: current Alcohol intake frequency: 0-2 drinks per day Alcohol type: wine Substance Use Substance use: Never Substance use type: does not use Prental History History 3 Para 2 Hx # Term Pregnancies 2 Multiple births 0 Hx # Pregnancies 0 Ectopic pregnancies 0 AB induced 0 Hx Number of Living Children 2 AB spontaneous 1 Past Pregnancies Del. Date GA/Weeks # Preg Succ Route Wgt Sex Labor Lgth Anesth esia Location Prov Complic 03/12/18 39 No vaginal Male 15 regional [facility] 01/01/21 38 No vaginal 3240.35 g Female Will nieto CNM Delivery Date: 03/12/18 Last Updated by: ARABELLA Naylor Vital Signs and Lab Results Vital Signs Most Recent Vital Signs in EMR: Most Recent Vital Signs Temp Pulse Resp BP Pulse Ox 36.4 C L 98 H 20 108/81 99 09/23/24 08:41 09/23/24 08:41 09/23/24 08:41 09/23/24 08:41 09/23/24 08:41 Point of Care Results Point of Care Results: POC- Test(urine) Negative 09/23/24 08:44 Lab Results Blood Type / Crossmatch: No Data to Display Complete Blood Count: No Data to Display Complete Metabolic Panel: No Data to Display Liver Function Panel: No Data to Display Coagulation Panel: No Data to Display Cardiac Panel: No Data to Display Arterial Blood Gas: No Data to Display Venous Blood Gas: No Data to Display Pancreas Panel: No Data to Display Thyroid Panel: No Data to Display Infectious Disease: No Data to Display Blood Cultures: No Data to Display Toxicology Panel: No Data to Display Panel: No Data to Display Anesthesia Assessment and Plan Anesthesia History Personal History: No History of Anesthesia Complications Family History: No Family History of Anesthesia Complications Exercise Tolerance Exercise Tolerance: Metabolic Equivalents>4 Pertinent Negatives Pertinent Negatives: No Symptoms of GERD Cardiac & Pulmonary Exam Cardiac Exam: Normal S1/S2 Heart Sounds Pulmonary Exam: Clear Bilateral Breath Sounds Implantable Cardiac Device Does patient have a Pacemaker or an ICD?: No Airway Exam Known Difficult Airway: No Mallampati Class: 2 Mouth Opening: Normal (> 3cm) Thyromental Distance: Greater than 3 cm Neck Range of Motion: Full ROM Neck Circumference: Normal Teeth Condition: Normal Dentition ASA Classification ASA Score: ASA 2 Emergency Case?: No NPO Status NPO Status: NPO Clears >2 hours, Solids >8 hours Status Status: Negative HCG Anesthesia Plan Resuscitation Status: Full Code Anesthesia Technique: General Anesthesia Airway Planned: Natural Airway Monitors Used: Standard Monitors
[2024-09-23 08:56] VITALS: BMI 24.3
--- NOTE | 2024-09-23 09:17 | BOWEL_PTH ---
PATIENT: Jessica Payne LOC: [facility] U#:[id number] AGE/SX: 44/F ROOM: RE09/23/[address]: Leticia De Leon : 1980 BED: DIS: 09/23/2024 SPEC #: [id number] RECD: 09/23/24 12:42 STATUS: STEPHAN REQ #: [id number] JUNG: 09/23/24 09:[address]: Leticia De Leon DEPT: Surgical Specimen RECD BY: Zuleyka Meyer ENTERED: 09/23/24 12:43 SP TYPE: Bowel OTHR DR: Alexsandra De La Cruz Tissues: 1 - BIOPSY BOWEL Procedures: GROSS AND MICRO LEVEL 4 Comments: [id number]
[2024-09-23 09:30] VITALS: BP 97/70; PULSE 77; RESP 18; TEMP 36.3; O2SAT 98
--- NOTE | 2024-09-23 09:48 | W.ANESPOSTOP ---
Postoperative Evaluation Date, Time and Location Date Performed: 09/23/24 Time Performed: 09:49 Patient Location: Day Surgery Unit Vital Signs Most Recent Imported Vital Signs: Most Recent Vital Signs Temp Pulse Resp BP Pulse Ox 36.3 C L 77 18 97/70 L 98 09/23/24 09:30 09/23/24 09:30 09/23/24 09:30 09/23/24 09:30 09/23/24 09:30 Pain Score Most Recent Pain Score: Most Recent Pain Score Pain Level 0 09/23/24 09:30 Assessment Mental Status: Awake (Alert & Oriented to Patient Baseline) Airway and Respiratory Function: Patent airway with normal (patient baseline) respiratory exam Cardiovascular Function: Hemodynamically Stable Hydration Status: Adequately Hydrated Nausea & Vomiting: No Nausea or Vomiting Pain: Pt. Denies Any Pain Peripheral Nerve Block: Patient did not receive a nerve block
[2024-09-23 09:59] VITALS: BP 111/64; PULSE 79; RESP 18; TEMP 36.3; O2SAT 99
== END 2024-09-23 10:18 | disposition home or self-care (01) ==
LOC: SUR 08:23
PROVIDERS: PCP Nurse Practitioner Family; Visit Provider Surgery
PROC: 0DJD8ZZ Inspection of Lower Intestinal Tract, Via Natural or Artificial Opening Endoscopic (ICD-10-PCS; CPT 45378; principal; 2024-09-23 08:30)
DX: Z12.11 Encounter for screening for malignant neoplasm of colon; Z80.0 Family history of malignant neoplasm of digestive organs; D12.4 Benign neoplasm of descending colon
CPT/HCPCS: 45385; 81025; 88305; J2003; J2704

== ENCOUNTER 2025-09-01 15:39 | Outpatient (REF) | payer OTHER, SELFPAY ==
[2025-09-01 21:37] LABS: ALT 14 U/L (10-49); AST 16 U/L (<34); Albumin 4.1 g/dL (3.2-5.0); Alkaline Phosphatase 50 U/L (46-116); Anion Gap 7.9 mmol/L (3-11); BUN 15 mg/dL (9-23); Bilirubin, Total 0.8 mg/dL (0.2-1.2); CO2 26.1 mmol/L (20.0-31.0); Calcium 8.9 mg/dL (8.3-10.6); Chloride 107 mmol/L (98-107); Cholesterol 170 mg/dL (<200); Glucose 84 mg/dL (74-106); HDL Cholesterol 62 mg/dL (>40); Potassium 4.0 mmol/L (3.5-5.1); Sodium 141 mmol/L (136-145); Total Protein 7.0 g/dL (5.7-8.2)
== END 2025-09-01 15:40 | disposition home or self-care (01) ==
LOC: NCHCN 15:39
PROVIDERS: PCP Nurse Practitioner Family; Visit Provider Nurse Practitioner Family
DX: E78.00 Pure hypercholesterolemia, unspecified (principal)
CPT/HCPCS: 80053; 80061